=== PATIENT | male | born 1955 | race American Indian/Alaskan Native ===

== ENCOUNTER 2018-06-14 02:03 | Inpatient (IN) | payer OTHER ==
[2018-06-14 03:02] LABS: Basophils # (Auto) 0.1 K/mm3 (0.0-0.1); Basophils % (Auto) 1.1 % (0.0-1.8); Eosinophils # (Auto) 0.7 K/mm3 (0.0-0.4); Eosinophils % (Auto) 8.6 % (0.0-4.3); Hematocrit 31.8 % (35.5-45.6); Hemoglobin 10.3 gm/dl (11.8-15.2); Lymphocytes # (Auto) 1.3 K/mm3 (1.2-5.4); Lymphocytes % (Auto) 16.5 % (13.4-35.0); Mean Corpuscular HGB Conc 33 % (32-34); Mean Corpuscular Hemoglobin 31 pg (28-32); Mean Corpuscular Volume 94 fl (84-94); Monocytes # (Auto) 0.5 K/mm3 (0.0-0.8); Monocytes % (Auto) 6.1 % (0.0-7.3); Platelet Count 225 K/mm3 (140-440); Red Blood Count 3.39 M/mm3 (3.65-5.03); Red Cell Distribution Width 14.6 % (13.2-15.2)
--- NOTE | 2018-06-14 03:02 | XRay Report ---
FINAL REPORT EXAM: XR CHEST ROUTINE 2V HISTORY: Shortness of breath TECHNIQUE: Frontal and lateral chest x-ray. PRIORS: None. FINDINGS: Mild cardiomegaly. Lungs show increased interstitial markings centrally and partially confluent opacities in bilateral lower lobes, left greater than right. Small bilateral pleural effusions, left greater than right. No apparent pneumothorax. Bony thorax grossly unremarkable. IMPRESSION: 1. Findings compatible with pulmonary edema in the appropriate clinical setting versus inflammatory pneumonitis, and bilateral pleural effusions. Correlate clinically.
[2018-06-14 03:29] LABS: Calcium 9.6 mg/dL (8.4-10.2)
[2018-06-14 05:29] LABS: Chol/HDL Ratio 2.38 %
[2018-06-14] MEDS ORDERED: LASIX IV ONE (05:43)
[2018-06-14] MEDS ORDERED: NITRO-BID 2% TP ONE (06:20)
--- NOTE | 2018-06-14 06:20 | Emergency Department Report ---
ED Shortness of Breath HPI - General Chief Complaint: Dyspnea/Respdistress Stated Complaint: SOB Time Seen by Provider: 06/14/18 06:15 Source: patient Mode of arrival: Ambulatory Limitations: No Limitations - History of Present Illness Initial Comments: This is a 62-year-old male with chronic kidney disease who has been living in [place] for the last 3 weeks. States he has a history of hypertension and CHF. He was told that he needed to see a manager school in [place]. He states that he did not get an appointment yet. He presents to the emergency department for any shortness of breath. His initial blood pressure was 203/97 at triage. During the night he had Lasix ordered by another emergency physician. The time of my encounter the patient is not acutely dyspneic. His pulse oximetry is stable. His heart rate is in the 60s. He is able to speak in full sentences. He is still hypertensive and that was addressed. He did not complain of any chest pain nor headache. He denied any focal neurological symptoms. He had been short of breath for the last several days or perhaps longer. MD Complaint: shortness of breath -: days(s), week(s) Known History Of: congestive heart failure, other (chronic kidney disease) Associated Symptoms: other (leg swelling) - Related Data Home Medications Medication Instructions Recorded Confirmed Last Taken Atorvastatin Calcium [Lipitor] 20 mg PO HS 06/14/18 06/14/18 Unknown Lisinopril [Zestril] 20 mg PO QDAY 06/14/18 06/14/18 Unknown Metoprolol [Lopressor TAB] 50 mg PO QDAY 06/14/18 06/14/18 Unknown NIFEdipine [] 90 mg PO DAILY 06/14/18 06/14/18 Unknown Paricalcitol [Zemplar] 1 mcg PO 3XW 06/14/18 06/14/18 06/12/18 cloNIDine [Catapres] 0.1 mg PO QDAY PRN 06/14/18 06/14/18 Unknown metFORMIN [Glucophage] 500 mg PO QDAY 06/14/18 06/14/18 Unknown Allergies Allergy/AdvReac Type Severity Reaction Status Date / Time No Known Allergies Allergy Unverified 06/14/18 02:20 ED Review of Systems ROS: Stated complaint: SOB Other details as noted in HPI Constitutional: denies: chills, fever Eyes: denies: eye pain, eye discharge, vision change ENT: denies: ear pain, throat pain Respiratory: shortness of breath, SOB with exertion. denies: cough, wheezing Cardiovascular: denies: chest pain, palpitations Endocrine: no symptoms reported Gastrointestinal: denies: abdominal pain, nausea, diarrhea Genitourinary: denies: urgency, dysuria Musculoskeletal: as per HPI. denies: back pain, joint swelling, arthralgia Skin: denies: rash, lesions Neurological: denies: headache, weakness, paresthesias Psychiatric: denies: anxiety, depression Hematological/Lymphatic: denies: easy bleeding, easy bruising ED Past Medical Hx - Past Medical History Previous Medical History?: Yes Hx Hypertension: Yes Hx Congestive Heart Failure: Yes Hx Diabetes: Yes Additional medical history: CKD - Surgical History Past Surgical History?: No - Social History Smoking Status: Never Smoker Substance Use Type: None - Medications Home Medications: Home Medications Medication Instructions Recorded Confirmed Last Taken Type Atorvastatin Calcium [Lipitor] 20 mg PO HS 06/14/18 06/14/18 Unknown History Lisinopril [Zestril] 20 mg PO QDAY 06/14/18 06/14/18 Unknown History Metoprolol [Lopressor TAB] 50 mg PO QDAY 06/14/18 06/14/18 Unknown History NIFEdipine [] 90 mg PO DAILY 06/14/18 06/14/18 Unknown History Paricalcitol [Zemplar] 1 mcg PO 3XW 06/14/18 06/14/18 06/12/18 History cloNIDine [Catapres] 0.1 mg PO QDAY PRN 06/14/18 06/14/18 Unknown History metFORMIN [Glucophage] 500 mg PO QDAY 06/14/18 06/14/18 Unknown History ED Physical Exam - General Limitations: No Limitations General appearance: alert, in no apparent distress - Head Head exam: Present: atraumatic, normocephalic - Eye Eye exam: Present: normal appearance. Absent: scleral icterus - ENT ENT exam: Present: mucous membranes moist - Neck Neck exam: Present: normal inspection. Absent: tenderness, meningismus - Respiratory Respiratory exam: Present: decreased breath sounds (perhaps slightly at the bases). Absent: respiratory distress, accessory muscle use - Cardiovascular Cardiovascular Exam: Present: regular rate, normal rhythm. Absent: systolic murmur, diastolic murmur, rubs, gallop - GI/Abdominal GI/Abdominal exam: Present: soft, normal bowel sounds. Absent: distended, tenderness, guarding, rebound, rigid - Rectal Rectal exam: Present: deferred - Extremities Exam Extremities exam: Present: pedal edema, other (calf edema bilaterally) - Back Exam Back exam: Present: normal inspection - Neurological Exam Neurological exam: Present: alert, oriented X3, CN II-XII intact. Absent: motor sensory deficit - Psychiatric Psychiatric exam: Present: normal affect, normal mood - Skin Skin exam: Present: warm, dry, intact, normal color. Absent: rash ED Course Vital Signs 06/14/18 06/14/18 06/14/18 02:14 03:30 03:44 Temperature 98.1 F 99.5 F Pulse Rate 59 L 60 60 Respiratory 18 16 17 Rate Blood Pressure 229/96 203/97 Blood Pressure 203/97 [Left] O2 Sat by Pulse 94 97 95 Oximetry 06/14/18 06/14/18 06/14/18 04:00 04:30 05:00 Temperature Pulse Rate 63 62 60 Respiratory 20 26 H 21 Rate Blood Pressure 207/104 200/104 198/100 Blood Pressure [Left] O2 Sat by Pulse 98 98 99 Oximetry 06/14/18 06/14/18 06/14/18 05:31 06:00 06:30 Temperature Pulse Rate 69 62 61 Respiratory 25 H 20 17 Rate Blood Pressure 198/100 201/102 200/102 Blood Pressure [Left] O2 Sat by Pulse 98 98 97 Oximetry 06/14/18 06/14/18 06/14/18 07:01 07:31 08:01 Temperature Pulse Rate Respiratory Rate Blood Pressure 199/100 187/91 186/92 Blood Pressure [Left] O2 Sat by Pulse 94 95 96 Oximetry 06/14/18 06/14/18 06/14/18 08:25 08:30 09:00 Temperature Pulse Rate Respiratory Rate Blood Pressure 186/92 189/91 179/86 Blood Pressure [Left] O2 Sat by Pulse 96 95 Oximetry 06/14/18 06/14/18 06/14/18 09:25 09:30 10:00 Temperature Pulse Rate 61 Respiratory Rate Blood Pressure 183/88 193/101 Blood Pressure [Left] O2 Sat by Pulse 97 97 Oximetry 06/14/18 06/14/18 06/14/18 10:30 11:00 11:30 Temperature Pulse Rate Respiratory Rate Blood Pressure 169/86 193/101 163/81 Blood Pressure [Left] O2 Sat by Pulse 97 96 95 Oximetry - Reevaluation(s) Reevaluation #1: Patient was given hydralazine and nitrates. His blood pressure was improving. He was admitted to the hospitalist service further care and evaluation. I consulted the manager school Dr. Pruitt and discussed the case. I do not believe the patient has an infectious process. He was admitted for treatment of his congestive heart failure and uncontrolled hypertension as well as management of his chronic kidney disease. 06/14/18 17:12 ED Medical Decision Making - Lab Data Result diagrams: 06/14/18 02:22 06/14/18 02:22 Laboratory Results - last 24 hr 06/14/18 06/14/18 02:22 02:22 WBC 8.1 RBC 3.39 L Hgb 10.3 L Hct 31.8 L MCV 94 MCH 31 MCHC 33 RDW 14.6 Plt Count 225 Lymph % (Auto) 16.5 [place] % (Auto) 6.1 Eos % (Auto) 8.6 H Baso % (Auto) 1.1 Lymph # 1.3 [place] # 0.5 Eos # 0.7 H Baso # 0.1 Seg Neutrophils % 67.7 Seg Neutrophils # 5.5 Sodium 142 Potassium 4.3 Chloride 101.0 Carbon Dioxide 24 Anion Gap 21 BUN 60 H Creatinine 5.4 H Estimated GFR 11 BUN/Creatinine Ratio 11 Glucose 113 H Calcium 9.6 Troponin T 0.085 H NT-Pro-B Natriuret Pep 78169 H Triglycerides 75 Cholesterol 167 LDL Cholesterol Direct 106 HDL Cholesterol 70 H Cholesterol/HDL Ratio 2.38 - EKG Data -: EKG Interpreted by Me EKG shows normal: axis - EKG Data Interpretation: other (left bundle-branch block) - Radiology Data Radiology results: report reviewed (pulmonary edema. Radiologist suggested the possibility of pneumonitis however I don't think it clinically correlates) Critical Care Time: Yes Critical care time in (mins) excluding proc time.: 50 Critical care attestation.: If time is entered above; I have spent that time in minutes in the direct care of this critically ill patient, excluding procedure time. ED Disposition Clinical Impression: Accelerated hypertension, Left bundle branch block (LBBB) Pulmonary edema Qualifiers: Chronicity: acute Qualified Code(s): J81.0 - Acute pulmonary edema Chronic kidney disease Qualifiers: Chronic kidney disease stage: stage 4 (severe) Qualified Code(s): N18.4 - Chronic kidney disease, stage 4 (severe) Disposition: DC-09 OP ADMIT IP TO THIS HOSP Is pt being admited?: Yes Does the pt Need Aspirin: Yes Condition: Stable Time of Disposition: 17:17
[2018-06-14] MEDS ORDERED: APRESOLINE IV ONE ×2 (06:21→08:20)
[2018-06-14] MEDS ORDERED: CATAPRES PO PRN (11:48)
[2018-06-14] MEDS ORDERED: NACL 0.9% 1000 ML 1,000 ML IV SCH (13:00)
[2018-06-14] MEDS ORDERED: ZEMPLAR PO SCH ×2 (14:00→21:00)
--- NOTE | 2018-06-14 14:42 | Consultation ---
History of Present Illness - Reason for Consult Consult date: 06/14/18 acute renal failure, chronic renal failure - History of Present Illness This is a 62 year old male who presented to the E.R with a chief complaint of shortness of breath which has been present for the last 2 weeks. Patient also reports that he has a cough and feels like he needs to cough mucus up at times but cant. Patient states he has been in [place] for the last 5 weeks and travels back and forth to [place] as his mother lives in [place] and his [employer] is in [place] but his lives in [place]. Patient reports that he is a Diabetic since he was 39 years old and has been diagnosed with Hypertension since he was 29. Patient has history of Chronic Kidney disease as well for which he is being followed by a [employer] in [place] by the name of Dr. Grier whom he sees every 3 months with his last visit being sometime in February of this year. Patient states he was told at his last visit that his renal function was low in the teens. On evaluation patient noted to have an elevated serum creatinine of 5.4 with a GFR of 11 ml/min. CXR done revealed Pulmonary Edema for which patient was placed on Lasix. We are being consulted for management of this patient's Chronic Kidney Disease. Past History Past Medical History: diabetes, hypertension, hyperlipidemia, renal failure Past Surgical History: No surgical history Social history: no significant social history Family history: no significant family history Medications and Allergies Allergies Allergy/AdvReac Type Severity Reaction Status Date / Time No Known Allergies Allergy Unverified 06/14/18 02:20 Home Medications Medication Instructions Recorded Confirmed Last Taken Type Atorvastatin Calcium [Lipitor] 20 mg PO HS 06/14/18 06/14/18 Unknown History Lisinopril [Zestril] 20 mg PO QDAY 06/14/18 06/14/18 Unknown History Metoprolol [Lopressor TAB] 50 mg PO QDAY 06/14/18 06/14/18 Unknown History NIFEdipine [] 90 mg PO DAILY 06/14/18 06/14/18 Unknown History Paricalcitol [Zemplar] 1 mcg PO 3XW 06/14/18 06/14/18 06/12/18 History cloNIDine [Catapres] 0.1 mg PO QDAY PRN 06/14/18 06/14/18 Unknown History metFORMIN [Glucophage] 500 mg PO QDAY 06/14/18 06/14/18 Unknown History Active Meds: Active Medications Atorvastatin Calcium (Lipitor) 20 mg PO HS [facility] Clonidine HCl (Catapres) 0.1 mg PO QDAY PRN PRN Reason: Blood Pressure Hydralazine HCl (Apresoline) 10 mg IV Q4HR PRN PRN Reason: BP >160/100 Sodium Chloride (Nacl 0.9% 1000 Ml) 1,000 mls @ 125 mls/hr IV DIRECT [facility] Metoprolol Tartrate (Lopressor) 50 mg PO QDAY [facility] Nifedipine (Procardia Xl) 90 mg PO QDAY [facility] Paricalcitol (Zemplar) 1 mcg PO MoWeFr@2100 [facility] Review of Systems Constitutional: fatigue, no weight loss, no weight gain, no fever, no chills, no sweats Ears, nose, mouth and throat: no ear discharge, no tinnitis, no decreased hearing, no nose pain, no nasal congestion, no nasal discharge Cardiovascular: shortness of breath, high blood pressure, no chest pain, no orthopnea, no palpitations, no rapid/irregular heart beat, no edema Respiratory: shortness of breath, no cough, no cough with sputum, no excessive sputum, no hemoptysis Gastrointestinal: no abdominal pain, no nausea, no vomiting, no diarrhea, no constipation, no change in bowel habits Musculoskeletal: no neck stiffness, no neck pain, no shooting arm pain, no arm numbness/tingling, no low back pain, no shooting leg pain, no leg numbness/ tingling, no redness of joints Integumentary: no rash, no pruritis, no redness, no sores, no wounds, no jaundice Neurological: no head injury, no transient paralysis, no paralysis, no weakness , no parathesias, no numbness, no tingling, no seizures, no syncope Psychiatric: no anxiety, no memory loss, no change in sleep habits, no sleep disturbances, no insomnia, no change in appetite Endocrine: no cold intolerance, no heat intolerance, no polyphagia, no excessive thirst, no polydipsia, no polyuria Hematologic/Lymphatic: no easy bruising, no easy bleeding, no lymphadenopathy Allergic/Immunologic: no urticaria, no allergic rhinitis, no wheezing, no persistent infections Exam - Vital Signs Vital signs: Vital Signs Temp Pulse Resp BP Pulse Ox 98.1 F 59 L 18 229/96 94 06/14/18 02:14 06/14/18 02:14 06/14/18 02:14 06/14/18 02:14 06/14/18 02:14 - General Appearance General appearance: well-developed, appears stated age EENT: ATNC, PERRL, hearing intact, vision intact Neck: Present: neck supple, trachea midline Respiratory: Decreased Breath Sounds Heart: regular, S1S2 Gastrointestinal: Present: normoactive bowel sounds Integumentary: warm and dry Neurologic: alert and oriented x3 Musculoskeletal: Present: other (Mild edema) Psychiatric: cooperative Results - Lab Results 06/14/18 02:22 06/14/18 02:22 Most recent lab results Calcium 9.6 mg/dL (8.4-10.2) 06/14/18 02:22 Assessment and Plan Chronic Kidney Disease, Stage 5, secondary to Hypertensive Nephrosclerosis and Diabetic Nephropathy: -Patient's renal disease is likely End Stage given his history of DM and HTN and has been told in the past by his [employer] in [place] that his renal function was low and that he will need hemodialysis in the near future -Obtain renal ultrasound to rule out obstruction -Obtain urine lytes -Obtain Vasculitis/GN labs-CLIVE, ANCA, Anti-GBM, ASO, RPR, HIV, Hepatitis panel, C3, C4, Ch50, Anti-dsDNA, SPEP -Avoid Nephrotoxic agents -Renal diet -Monitor I/O's -Obtain daily weights -Will monitor renal function closely -Discussed with patient that if there is no improvement in renal function within the next 24 hours, he will need dialysis initiation Pulmonary Edema: -On Lasix 40 mg IV BID -Scheduled for Echocardiogram today Diabetes Mellitus: -As per primary team Hypertension: -On Clonidine/Hydralazine/Metoprolol/Procardia -Adjust regimen as needed
[2018-06-14] MEDS ORDERED: ASPIRIN PO ONE (17:19)
[2018-06-14] MEDS: LASIX IV SCH (18:25)
[2018-06-14] MEDS ORDERED: D50W (25GM) Syringe IV PRN (18:33)
--- NOTE | 2018-06-14 18:38 | History and Physical Report ---
History of Present Illness Date of admission: 06/14/18 07:31 Past History Past Medical History: diabetes, hypertension, hyperlipidemia, renal failure Past Surgical History: No surgical history Social history: no significant social history Family history: no significant family history Medications and Allergies Allergies Allergy/AdvReac Type Severity Reaction Status Date / Time No Known Allergies Allergy Unverified 06/14/18 02:20 Home Medications Medication Instructions Recorded Confirmed Last Taken Type Atorvastatin Calcium [Lipitor] 20 mg PO HS 06/14/18 06/14/18 Unknown History Lisinopril [Zestril] 20 mg PO QDAY 06/14/18 06/14/18 Unknown History Metoprolol [Lopressor TAB] 50 mg PO QDAY 06/14/18 06/14/18 Unknown History NIFEdipine [] 90 mg PO DAILY 06/14/18 06/14/18 Unknown History Paricalcitol [Zemplar] 1 mcg PO 3XW 06/14/18 06/14/18 06/12/18 History cloNIDine [Catapres] 0.1 mg PO QDAY PRN 06/14/18 06/14/18 Unknown History metFORMIN [Glucophage] 500 mg PO QDAY 06/14/18 06/14/18 Unknown History Active Meds: Active Medications Atorvastatin Calcium (Lipitor) 20 mg PO HS [facility] Clonidine HCl (Catapres) 0.1 mg PO QDAY PRN PRN Reason: Blood Pressure Dextrose (D50w (25gm) Syringe) 50 ml IV PRN PRN PRN Reason: Hypoglycemia Furosemide (Lasix) 40 mg IV 0600,1800 [facility] Last Admin: 06/14/18 18:25 Dose: 40 mg Hydralazine HCl (Apresoline) 10 mg IV Q4HR PRN PRN Reason: BP >160/100 Insulin Human Lispro (Humalog) 0 unit SUB-Q ACHS [facility]; Protocol Metoprolol Tartrate (Lopressor) 50 mg PO QDAY [facility] Nifedipine (Procardia Xl) 90 mg PO QDAY [facility] Paricalcitol (Zemplar) 1 mcg PO MoWeFr@2100 [facility] Exam - Constitutional Vitals: Temp Pulse Resp BP Pulse Ox 99.5 F 61 17 163/81 95 06/14/18 03:44 06/14/18 17:25 06/14/18 06:30 06/14/18 11:30 06/14/18 11:30 Results - Labs CBC & Chem 7: 06/14/18 02:22 06/14/18 02:22 Labs: Laboratory Last Values WBC 8.1 K/mm3 (4.5-11.0) 06/14/18 02:22 RBC 3.39 M/mm3 (3.65-5.03) L 06/14/18 02:22 Hgb 10.3 gm/dl (11.8-15.2) L 06/14/18 02:22 Hct 31.8 % (35.5-45.6) L 06/14/18 02:22 MCV 94 fl (84-94) 06/14/18 02:22 MCH 31 pg (28-32) 06/14/18 02:22 MCHC 33 % (32-34) 06/14/18 02:22 RDW 14.6 % (13.2-15.2) 06/14/18 02:22 Plt Count 225 K/mm3 (140-440) 06/14/18 02:22 Lymph % (Auto) 16.5 % (13.4-35.0) 06/14/18 02:22 [place] % (Auto) 6.1 % (0.0-7.3) 06/14/18 02:22 Eos % (Auto) 8.6 % (0.0-4.3) H 06/14/18 02:22 Baso % (Auto) 1.1 % (0.0-1.8) 06/14/18 02:22 Lymph # 1.3 K/mm3 (1.2-5.4) 06/14/18 02:22 [place] # 0.5 K/mm3 (0.0-0.8) 06/14/18 02:22 Eos # 0.7 K/mm3 (0.0-0.4) H 06/14/18 02:22 Baso # 0.1 K/mm3 (0.0-0.1) 06/14/18 02:22 Seg Neutrophils % 67.7 % (40.0-70.0) 06/14/18 02:22 Seg Neutrophils # 5.5 K/mm3 (1.8-7.7) 06/14/18 02:22 Sodium 142 mmol/L (137-145) 06/14/18 02:22 Potassium 4.3 mmol/L (3.6-5.0) 06/14/18 02:22 Chloride 101.0 mmol/L (98-107) 06/14/18 02:22 Carbon Dioxide 24 mmol/L (22-30) 06/14/18 02:22 Anion Gap 21 mmol/L 06/14/18 02:22 BUN 60 mg/dL (9-20) H 06/14/18 02:22 Creatinine 5.4 mg/dL (0.8-1.5) H 06/14/18 02:22 Estimated GFR 11 ml/min 06/14/18 02:22 BUN/Creatinine Ratio 11 % 06/14/18 02:22 Glucose 113 mg/dL (75-100) H 06/14/18 02:22 Calcium 9.6 mg/dL (8.4-10.2) 06/14/18 02:22 Troponin T 0.085 ng/mL (0.00-0.029) H 06/14/18 02:22 NT-Pro-B Natriuret Pep 21071 pg/mL (0-900) H 06/14/18 02:22 Triglycerides 75 mg/dL (2-149) 06/14/18 02:22 Cholesterol 167 mg/dL (50-199) 06/14/18 02:22 LDL Cholesterol Direct 106 mg/dL (50-130) 06/14/18 02:22 HDL Cholesterol 70 mg/dL (40-59) H 06/14/18 02:22 Cholesterol/HDL Ratio 2.38 % 06/14/18 02:22
[2018-06-14] MEDS: APRESOLINE IV PRN ×2 (19:20→23:49)
[2018-06-14 20:28] LABS: Potassium, Urine 16.6 mmol/L
[2018-06-14 20:33] LABS: Creatinine,Urine 31.4 mg/dL (0.1-20.0)
[2018-06-14 20:34] LABS: Alanine Aminotransferase 23 units/L (7-56); Albumin 3.9 g/dL (3.9-5)
[2018-06-14 20:39] LABS: Bilirubin,Direct < 0.2 mg/dL (0-0.2)
[2018-06-14] MEDS: HumaLOG SUB-Q SCH (23:00)
--- NOTE | 2018-06-15 01:09 | Ultrasound Report ---
FINAL REPORT PROCEDURE: US RENAL BILAT TECHNIQUE: Real-time sonography in multiple planes of the kidneys, ureters and urinary bladder was performed with image documentation. CPT 32692 HISTORY: Acute renal insufficiency COMPARISON: No prior studies are available for comparison. FINDINGS: The echogenicity of the renal cortex of both kidneys is diffusely increased consistent with chronic renal parenchymal disease. Multiple anechoic nodules with increased through sound transmission and enhancement other posterior marie project in the renal cortex of both kidneys consistent with renal cortical cyst. The largest on the right is located inferiorly measuring 9.6 centimeters. The largest on the left is located inferiorly measuring 5.3 centimeters. No hydronephrosis visualized. No renal calculi are visualized. No solid masses are seen. The right kidney measures 11.3 x 4.6 x 5.4 centimeters. The left kidney measures 10.5 x 4.8 x 5.3 centimeters. Bladder diverticulum appears to be visualize right side of the urinary bladder measuring 3.1 x 1.5 centimeter. Urinary bladder otherwise is unremarkable. IMPRESSION: Diffuse increased echogenicity of the renal cortex bilaterally consistent with chronic renal parenchymal disease. No hydronephrosis. Multiple renal cortical cyst visualized bilaterally as described.. No solid masses or renal calculi are visualized. Bladder diverticulum suspected as described.
[2018-06-15] MEDS: LASIX IV SCH ×2 (07:07→18:32)
[2018-06-15] MEDS: APRESOLINE IV PRN (07:08)
[2018-06-15] MEDS: HumaLOG SUB-Q SCH ×4 (07:30→23:00)
[2018-06-15 07:58] LABS: Basophils # (Auto) 0.1 K/mm3 (0.0-0.1); Eosinophils # (Auto) 0.1 K/mm3 (0.0-0.4); Eosinophils % (Auto) 1.5 % (0.0-4.3); Hemoglobin 9.5 gm/dl (11.8-15.2); Lymphocytes # (Auto) 1.2 K/mm3 (1.2-5.4); Lymphocytes % (Auto) 15.5 % (13.4-35.0); Mean Corpuscular HGB Conc 34 % (32-34); Mean Corpuscular Hemoglobin 31 pg (28-32); Mean Corpuscular Volume 93 fl (84-94); Monocytes # (Auto) 0.7 K/mm3 (0.0-0.8); Monocytes % (Auto) 9.1 % (0.0-7.3); Platelet Count 210 K/mm3 (140-440); Red Blood Count 3.01 M/mm3 (3.65-5.03); Red Cell Distribution Width 14.9 % (13.2-15.2)
[2018-06-15 08:27] LABS: Albumin 3.6 g/dL (3.9-5); Calcium 9.2 mg/dL (8.4-10.2)
[2018-06-15] MEDS ORDERED: NON-FORMULARY (Nifedipine [Nifedipine Er] 90 MG) PO SCH (10:00)
[2018-06-15] MEDS: LOPRESSOR PO SCH (10:25)
[2018-06-15] MEDS: PROCARDIA XL PO SCH (10:25)
--- NOTE | 2018-06-15 11:53 | Progress Note ---
Assessment and Plan Chronic Kidney Disease, Stage 5, secondary to Hypertensive Nephrosclerosis and Diabetic Nephropathy: -Patient's renal disease is likely End Stage given his history of DM and HTN and has been told in the past by his [employer] in [place] that his renal function was low and that he will need hemodialysis in the near future -renal US negative for obstruction -Vasculitis/GN labs-CLIVE, ANCA, Anti-GBM, ASO, RPR, HIV, Hepatitis panel, C3, C4 , Ch50, Anti-dsDNA, SPEP is pending -Avoid Nephrotoxic agents -Renal diet -Monitor I/O's -Obtain daily weights -Will monitor renal function closely - no indication for [employer] for now but likely will need in the near future, if stable, the process can be started as an outpatient Pulmonary Edema: -On Lasix 40 mg IV BID Diabetes Mellitus: -As per primary team Hypertension: -On Clonidine/Hydralazine/Metoprolol/Procardia -Adjust regimen as needed Subjective Date of service: 06/15/18 Principal diagnosis: chronic kidney disease Interval history: SOB is improving Objective - Vital Signs Vital signs: Vital Signs - 12hr 06/15/18 06/15/18 06/15/18 04:37 07:08 08:09 Temperature 98.1 F 99.7 F H Pulse Rate 71 69 76 Respiratory 18 Rate Blood Pressure 183/91 197/96 177/83 O2 Sat by Pulse 93 98 Oximetry 06/15/18 06/15/18 06/15/18 09:00 10:00 10:25 Temperature Pulse Rate 58 L 76 Respiratory 20 Rate Blood Pressure 177/83 O2 Sat by Pulse 98 Oximetry - General Appearance General appearance: well-developed, well-nourished, appears stated age EENT: ATNC, PERRL, mucous membranes moist Neck: no JVD, no carotid bruit Respiratory: Present: Rales, Ronchi Cardiology: regular, S1S2 Gastrointestinal: normoactive bowel sounds, no hypoactive bowel sounds, no absent bowel sounds, no tenderness Integumentary: no rash, warm and dry Neurologic: no focal deficit, no asterixis, alert and oriented x3 Musculoskeletal: other (no edema in BLE) Psychiatric: mood/affect appropriate, cooperative - Lab 06/15/18 07:36 06/15/18 07:36 Most recent lab results Calcium 9.2 mg/dL (8.4-10.2) 06/15/18 07:36 Phosphorus 4.70 mg/dL (2.5-4.5) H 06/15/18 07:36 Urine Creatinine 31.4 mg/dL (0.1-20.0) H 06/14/18 18:57 Urine Sodium 111 mmol/L 06/14/18 18:57 Urine Total Protein 227 mg/dL (5-11.8) H 06/14/18 18:57
[2018-06-15] MEDS ORDERED: GUAIFENESIN DM SYRUP PO PRN (18:19)
[2018-06-15] MEDS ORDERED: TYLENOL PO PRN (19:59)
[2018-06-15] MEDS: CATAPRES PO SCH ×2 (20:19→22:00)
[2018-06-16] MEDS: LASIX IV SCH (05:49)
[2018-06-16] MEDS: HumaLOG SUB-Q SCH ×2 (07:30→13:19)
--- NOTE | 2018-06-16 08:04 | Progress Note ---
History Interval history: Review of systems Constitutional: No fevers, no malaise, no joint pains CVS: No chest pain, no orthopnea, no dyspnea on exertion, no pedal edema GI: No abdominal pain, no diarrhea, no vomiting, no constipation Respiratory: No shortness of breath, no wheezing, no coughing Hospitalist Physical - Physical exam Narrative exam: General.: Appears well, no distress, nontoxic HEENT: Moist mucous membranes, extraocular muscles intact, no lymphadenopathy Neck: supple Cardiac: S1-S2 heard Lungs: clear to auscultation bilaterally Abdomen: soft , nontender, nondistended, bowel sounds positive Extremities: no edema clubbing or cyanosis Skin: no rash or lesions Neurologic: no gross focal deficits Psych: appropriate behavior, appropriate mood, corporative, judgment intact - Constitutional Vitals: Temp Pulse Resp BP Pulse Ox 98.9 F 66 18 162/85 100 06/16/18 04:45 06/16/18 04:45 06/16/18 04:45 06/16/18 04:45 06/16/18 04:45 Results - Labs CBC & Chem 7: 06/16/18 10:31 06/16/18 09:16 Labs: Laboratory Last Values WBC 7.7 K/mm3 (4.5-11.0) 06/15/18 07:36 RBC 3.01 M/mm3 (3.65-5.03) L 06/15/18 07:36 Hgb 9.5 gm/dl (11.8-15.2) L 06/15/18 07:36 Hct 28.0 % (35.5-45.6) L 06/15/18 07:36 MCV 93 fl (84-94) 06/15/18 07:36 MCH 31 pg (28-32) 06/15/18 07:36 MCHC 34 % (32-34) 06/15/18 07:36 RDW 14.9 % (13.2-15.2) 06/15/18 07:36 Plt Count 210 K/mm3 (140-440) 06/15/18 07:36 Lymph % (Auto) 15.5 % (13.4-35.0) 06/15/18 07:36 [place] % (Auto) 9.1 % (0.0-7.3) H 06/15/18 07:36 Eos % (Auto) 1.5 % (0.0-4.3) 06/15/18 07:36 Baso % (Auto) 1.0 % (0.0-1.8) 06/15/18 07:36 Lymph # 1.2 K/mm3 (1.2-5.4) 06/15/18 07:36 [place] # 0.7 K/mm3 (0.0-0.8) 06/15/18 07:36 Eos # 0.1 K/mm3 (0.0-0.4) 06/15/18 07:36 Baso # 0.1 K/mm3 (0.0-0.1) 06/15/18 07:36 Seg Neutrophils % 72.9 % (40.0-70.0) H 06/15/18 07:36 Seg Neutrophils # 5.6 K/mm3 (1.8-7.7) 06/15/18 07:36 Sodium 144 mmol/L (137-145) 06/15/18 07:36 Potassium 3.8 mmol/L (3.6-5.0) 06/15/18 07:36 Chloride 102.3 mmol/L (98-107) 06/15/18 07:36 Carbon Dioxide 22 mmol/L (22-30) 06/15/18 07:36 Anion Gap 24 mmol/L 06/15/18 07:36 BUN 62 mg/dL (9-20) H 06/15/18 07:36 Creatinine 5.4 mg/dL (0.8-1.5) H 06/15/18 07:36 Estimated GFR 13 ml/min 06/15/18 07:36 BUN/Creatinine Ratio 11 % 06/15/18 07:36 Glucose 110 mg/dL (75-100) H 06/15/18 07:36 POC Glucose 83 (70-105) 06/16/18 06:51 Hemoglobin A1c 5.8 % (4-6) 06/15/18 07:36 Osmolality 314 Mosm/kg 06/15/18 07:36 Calcium 9.2 mg/dL (8.4-10.2) 06/15/18 07:36 Phosphorus 4.70 mg/dL (2.5-4.5) H 06/15/18 07:36 Total Bilirubin 0.50 mg/dL (0.1-1.2) 06/15/18 07:36 Direct Bilirubin < 0.2 mg/dL (0-0.2) 06/14/18 19:56 Indirect Bilirubin 0.2 mg/dL 06/14/18 19:56 AST 15 units/L (5-40) 06/15/18 07:36 ALT 18 units/L (7-56) 06/15/18 07:36 Alkaline Phosphatase 70 units/L (35-129) 06/15/18 07:36 Troponin T 0.085 ng/mL (0.00-0.029) H 06/14/18 02:22 NT-Pro-B Natriuret Pep 71052 pg/mL (0-900) H 06/14/18 02:22 Total Protein 7.0 g/dL (6.3-8.2) 06/15/18 07:36 Albumin 3.6 g/dL (3.9-5) L 06/15/18 07:36 Albumin/Globulin Ratio 1.1 % 06/15/18 07:36 Triglycerides 75 mg/dL (2-149) 06/14/18 02:22 Cholesterol 167 mg/dL (50-199) 06/14/18 02:22 LDL Cholesterol Direct 106 mg/dL (50-130) 06/14/18 02:22 HDL Cholesterol 70 mg/dL (40-59) H 06/14/18 02:22 Cholesterol/HDL Ratio 2.38 % 06/14/18 02:22 Urine Creatinine 31.4 mg/dL (0.1-20.0) H 06/14/18 18:57 Urine Sodium 111 mmol/L 06/14/18 18:57 Urine Potassium 16.60 mmol/L 06/14/18 18:57 Urine Chloride 101.0 mmolL (110-250) L 06/14/18 18:57 Urine Total Protein 227 mg/dL (5-11.8) H 06/14/18 18:57 RPR Nonreactive (Nonreactive) 06/14/18 19:44 HIV 1&2 Antibody Rapid Non react (Non React) 06/14/18 19:59 HIV P24 Antigen Non react (Non React) 06/14/18 19:59
--- NOTE | 2018-06-16 08:08 | Discharge Summary ---
Providers - Providers Date of Admission: 06/14/18 07:31 Attending physician: AMAN LIANG MD 06/14/18 07:28 Consult to Physician [CONS] Urgent Comment: DR RIBERA NOTIFIED 09 Consulting Provider: TERESA RIBERA Physician Instructions: Reason For Exam: CKD CHF Primary care physician: KARISSA MORROW MD Hospitalization Condition: Stable Disposition: DC-30 STILL A PATIENT Exam - Constitutional Vitals: Temp Pulse Resp BP Pulse Ox 98.9 F 66 18 162/85 100 06/16/18 04:45 06/16/18 04:45 06/16/18 04:45 06/16/18 04:45 06/16/18 04:45 Plan Follow up with: PRIMARY CARE, [Primary Care Provider] - 3-5 Days Prescriptions: cloNIDine [Catapres] 0.1 mg PO BID #60 tablet Lisinopril [Zestril] 20 mg PO QDAY #30 tablet NIFEdipine [Nifedipine ER] 90 mg PO DAILY #30 tablet.er
--- NOTE | 2018-06-16 09:46 | Progress Note ---
Assessment and Plan Chronic Kidney Disease, Stage 5, secondary to Hypertensive Nephrosclerosis and Diabetic Nephropathy: - labs are pending this AM - OK to be discharged from renal standpoint, to be followed as an outpatient in my office -Avoid Nephrotoxic agents -Renal diet -Monitor I/O's -Obtain daily weights -Will monitor renal function closely - no indication for RAIL BENDER for now but likely will need in the near future, if stable, the process can be started as an outpatient Pulmonary Edema: -will switch to oral lasix Diabetes Mellitus: -As per primary team Hypertension: -On Clonidine/Hydralazine/Metoprolol/Procardia -Adjust regimen as needed Subjective Date of service: 06/16/18 Principal diagnosis: chronic kidney disease Interval history: denies acute issue overnight Objective - Vital Signs Vital signs: Vital Signs - 12hr 06/15/18 06/15/18 06/16/18 22:00 23:00 01:00 Temperature 98.2 F Pulse Rate 60 60 Pulse Rate [ 60 Left Radial] Respiratory 2 L 16 Rate Blood Pressure 152/70 O2 Sat by Pulse 98 Oximetry 06/16/18 06/16/18 06/16/18 04:45 07:50 07:56 Temperature 98.9 F 98.2 F Pulse Rate 66 64 Pulse Rate [ Left Radial] Respiratory 18 18 Rate Blood Pressure 162/85 161/84 165/89 O2 Sat by Pulse 100 96 Oximetry - General Appearance General appearance: well-developed, well-nourished, appears stated age EENT: ATNC, PERRL, mucous membranes moist Neck: no JVD, no carotid bruit Respiratory: Present: Clear to Ascultation Cardiology: regular, S1S2 Gastrointestinal: normoactive bowel sounds, no tenderness, no distended Integumentary: no rash, warm and dry Neurologic: no focal deficit, no asterixis, alert and oriented x3 Musculoskeletal: deferred Psychiatric: mood/affect appropriate, cooperative - Lab 06/15/18 07:36 06/15/18 07:36 Most recent lab results Calcium 9.2 mg/dL (8.4-10.2) 06/15/18 07:36 Phosphorus 4.70 mg/dL (2.5-4.5) H 06/15/18 07:36 Urine Creatinine 31.4 mg/dL (0.1-20.0) H 06/14/18 18:57 Urine Sodium 111 mmol/L 06/14/18 18:57 Urine Total Protein 227 mg/dL (5-11.8) H 06/14/18 18:57
[2018-06-16] MEDS: PROCARDIA XL PO SCH (09:51)
[2018-06-16] MEDS: LOPRESSOR PO SCH (09:52)
[2018-06-16] MEDS: CATAPRES PO SCH (09:52)
[2018-06-16 09:55] LABS: Calcium 9.5 mg/dL (8.4-10.2)
[2018-06-16 11:00] LABS: Basophils # (Auto) 0.1 K/mm3 (0.0-0.1); Basophils % (Auto) 0.9 % (0.0-1.8); Eosinophils # (Auto) 0.5 K/mm3 (0.0-0.4); Eosinophils % (Auto) 7.9 % (0.0-4.3); Hematocrit 26.7 % (35.5-45.6); Hemoglobin 8.7 gm/dl (11.8-15.2); Lymphocytes # (Auto) 1.2 K/mm3 (1.2-5.4); Lymphocytes % (Auto) 17.2 % (13.4-35.0); Mean Corpuscular HGB Conc 33 % (32-34); Mean Corpuscular Hemoglobin 31 pg (28-32); Mean Corpuscular Volume 96 fl (84-94); Monocytes # (Auto) 0.5 K/mm3 (0.0-0.8); Monocytes % (Auto) 7.6 % (0.0-7.3); Platelet Count 182 K/mm3 (140-440); Red Blood Count 2.79 M/mm3 (3.65-5.03); Red Cell Distribution Width 14.7 % (13.2-15.2)
[2018-06-16 13:16] VITALS: BP 159/82
[2018-06-16] MEDS ORDERED: LASIX PO SCH (18:00)
[2018-06-17 23:06] LABS: Albumin 3.9 g/dL (3.8-4.8); Gamma Globulin 1.3 g/dL (0.8-1.7)
[2018-06-18 20:53] LABS: Myeloperoxidase Antibody <1.0 AI (<1.0)
[2018-06-18 21:56] LABS: ANA Screen, IFA Negative (Negative)
== END 2018-06-16 16:00 | disposition home or self-care (01) | DRG 291 ==
LOC: ED 02:03 → 4A 07:31
PROVIDERS: ADMIT Internal Medicine; ATTEND Internal Medicine
DX: I13.2 Hypertensive heart and chronic kidney disease with heart failure and with stage 5 chronic kidney disease, or end stage renal disease (principal); J81.0 Acute pulmonary edema; N18.5 Chronic kidney disease, stage 5; I50.9 Heart failure, unspecified; I44.7 Left bundle-branch block, unspecified; E11.21 Type 2 diabetes mellitus with diabetic nephropathy; E11.22 Type 2 diabetes mellitus with diabetic chronic kidney disease; I77.6 Arteritis, unspecified; Z79.899 Other long term (current) drug therapy
CPT/HCPCS: 36415; 71046; 76770; 80048; 80053; 80061; 80074; 82436; 82570; 82962; 83036; 83520; 83880; 83930; 84100; 84133; 84156; 84165; 84300; 84484; 85025; 86021; 86038; 86060; 86160; 86162; 86225; 86592; 87806; 93005; 93010; 93306; A9270-GY; J0360; J1940

== ENCOUNTER 2018-07-26 11:33 | Outpatient (CLI) | payer OTHER ==
--- NOTE | 2018-07-26 13:17 | XRay Report ---
ROUTINE CHEST, TWO VIEWS: HISTORY: Chronic kidney disease. The trachea, heart, mediastinal contour, lung fajardo and bony thorax are unremarkable. Mild volume overload has resolved since 06/14/18. Dual-lumen right IJ venous catheter has been placed which terminates near the cavoatrial junction. IMPRESSION: Unremarkable chest x-ray.
== END 2018-07-26 11:34 | disposition home or self-care (01) ==
LOC: XRAY 11:33
PROVIDERS: ATTEND Internal Medicine Nephrology
DX: I13.2 Hypertensive heart and chronic kidney disease with heart failure and with stage 5 chronic kidney disease, or end stage renal disease (principal); N18.5 Chronic kidney disease, stage 5; I50.9 Heart failure, unspecified
CPT/HCPCS: 71046; 93005; 93010